=== PATIENT | male | born 1995 | race Caucasian/White ===

== ENCOUNTER 2023-11-27 20:51 | Emergency (ER) | payer SELFPAY ==
[2023-11-27 20:54] VITALS: BP 136/84
[2023-11-27 21:23] VITALS: BMI 25.5
--- NOTE | 2023-11-27 23:05 | ED.GENMED ---
History of Present Illness
General
Chief Complaint: Throat Problem
Time Seen by Provider: 11/27/23 22:15
History of Present Illness
History of Present Illness:
28-year-old male presents the emergency department for evaluation of intractable sore throat for the past 2 weeks. He was diagnosed with strep throat last week and started on azithromycin, return to the urgent care several days after with worsening
symptoms and was prescribed cefdinir and prednisone. Continues to take these medications without improvement. Denies any fevers but is having significant difficulty opening the jaw.
Review of Systems
Review of Systems
Allergies reviewed?: Yes
All Other Systems: ROS reviewed and negative except as documented in HPI and ROS
Phy Exam
Physical Exam
Physical Exam:
GEN: Well appearing, NAD, WDWN
HEENT: Oral mucosa moist, no scleral icterus. Large right peritonsillar abscess with severe uvular deviation and mild trismus. Palpable anterior cervical chain adenopathy
Cardiac: Regular rate
Lung: No respiratory distress, no tachypnea
MSK: No gross deformity or injuries
Skin: Good color, no pallor or jaundice, no rashes
Neuro: AO x3, moves all extremities freely
Psych: Calm, cooperative
Course
Orders/Labs/Results
Orders:
Orders
11/27/23 23:05
Clindamycin HCl [Cleocin] 450 mg PO NOW STA
Dexamethasone Pf [Decadron] 10 mg PO NOW STA
Vital Signs
Initial and Last Documented VS:
Initial Vital Signs
Temp Pulse Resp BP Pulse Ox
98.5 F 78 24 136/84 98
11/27/23 20:54 11/27/23 20:54 11/27/23 20:54 11/27/23 20:54 11/27/23 20:54
Last Documented Vital Signs
Temp Pulse Resp BP Pulse Ox
98.5 F 78 24 136/84 98
11/27/23 20:54 11/27/23 20:54 11/27/23 20:54 11/27/23 20:54 11/27/23 20:54
Procedures
Incision/Drainage/Joint Aspiration
Right peritonsillar:
Anethesia: 1% Lidocaine with Epi and other (Topical benzocaine)
Type of procedure: incise
Nature of site: abscess
Description of abscess: greater than 3cm
How much fluid was obtained?: large amount
Fluid description: purulent
Treatment: left open for drainage
MDM/Problems Addressed
MDM/Problems Addressed:
Copious purulent drainage was noted after puncturing the abscess, the patient was observed for approximately 45 minutes in the emergency department with significant symptomatic improvement and no further purulent discharge or bleeding was noted
postprocedure. Will switch his antibiotic therapy to clindamycin. I discussed the case with ENT on-call who will help arrange for outpatient follow-up
*Critical Care Note
Total Time (30-74mins, 75-104mins- exclusive of procedures): Not Applicable
ED Attending Note
-
Portions of this chart may have been created with voice recognition software.� Occasional wrong word or��sound alike� substitutions may have occurred due to the inherent limitations of voice recognition software.
Discharge Plan
Departure
Patient Disposition: Home (Routine Discharge)
Date of Disposition: 11/27/23
Time of Disposition: 23:05
Patient with high blood pressure during this ER visit?: No
Discharge Problem:
Peritonsillar abscess
Instructions: Peritonsillar Abscess, Adult (DC)
Prescriptions:
New
clindamycin HCl 300 mg capsule
300 mg PO Q6H 7 Days Qty: 28 0RF
No Action
No Current Medications
Referrals:
Rodolfo Motley MD [Active] - Call in 1-3 days for appt
Activity Restrictions/Additional Instructions:
Do not take the prednisone again until Monday
Follow-up with ENT as soon as possible
Stop the antibiotics you are currently taking and switch to clindamycin
Interventions
Interventions:
*Risk Screen - Suicide Last Done: 11/27/23 20:54
*Neglect/Abuse Screening Last Done: 11/27/23 20:54
ED-EENT Assessment Last Done: 11/27/23 21:20
ED- Pulmonary Assessment Last Done: 11/27/23 21:20
Discharge Date and Time
Print Language: MONGOLIAN
[2023-11-27] MEDS: DECADRON 10 MG PO (23:21)
[2023-11-27] MEDS: CLEOCIN 450 MG PO (23:23)
[2023-11-27 23:30] VITALS: BP 136/86
== END 2023-11-27 23:30 | disposition home or self-care (01) ==
LOC: EMR 20:51
PROVIDERS: EMERGENCY PHYSICIAN Emergency Medicine
DX: J36 Peritonsillar abscess (principal)
CPT/HCPCS: 99283; 42700

== ENCOUNTER 2023-12-03 10:36 | Emergency (ER) | payer OTHER, SELFPAY ==
[2023-12-03 10:37] VITALS: BP 126/83
--- NOTE | 2023-12-03 12:25 | ED.GENMED ---
History of Present Illness
General
Chief Complaint: Throat Problem
Source: patient
Time Seen by Provider: 12/03/23 12:19
History of Present Illness
History of Present Illness:
28-year-old male presents to the emergency room complaints of pain in the right side of his throat. Patient was here in the emergency room on November 26 and diagnosed with a peritonsillar abscess on the right. He had an I&D performed which resulted
in the drainage of a large amount of pus. Patient felt much better after the procedure. He was discharged on clindamycin. Patient continues to take clindamycin. However he is beginning to feel increased pain in the right throat and jaw. He
feels some limitation to his ability to open his mouth fully. No fever or chills. Patient is tolerating his own secretions and is able to swallow liquids.
Phy Exam
Physical Exam
Physical Exam:
General: Awake, Alert, Oriented X3. No acute distress.
Vitals: unremarkable
Head: Atraumatic
Eyes: Pupils equal, EOMI
Throat: Airway intact, no exudates, there is perhaps mild asymmetry of the right peritonsillar region but no large abscess. To palpation the area is mildly tender.
Neck: Trachea midline
Lungs: Clear and equal b/l
Heart: Regular rate, no murmurs
Neuro: Nonfocal
Skin: Warm, dry, no rash
Extremities: pulses equal b/l, no edema
Course
Orders/Labs/Results
Orders:
Orders
12/03/23 12:38
CT Neck With Iv Contrast Urgent
Comment: healthy, no need to wait for labs
Reason For Exam: r nck pain, recent absI+D, ? return/deep space inf
12/03/23 13:07
Basic Metabolic Panel Urgent
Complete Blood Count/With Diff Urgent
12/03/23 15:48
Dexamethasone Sod Phosphate [Decadron] 8 mg IV NOW STA
12/03/23 16:09
Clindamycin 600 mg/50 ml [Cleocin] 600 mg in 50 ml IV NOW
Abnormal Lab Results
12/03/23
13:07
WBC 12.7 H 10^3/uL
(4.8-10.8)
RBC 4.68 L 10^6/uL
(4.70-6.10)
Hct 38.2 L %
(39.0-52.0)
Abs Immat Gran (auto) 0.1 H 10^3/uL
(0-0.05)
Absolute Neuts (auto) 10.5 H 10^3/uL
(1.4-6.5)
Neutrophils % 83.0 H %
(42.2-75.2)
Lymphocytes % 11.5 L %
(20.5-51.1)
12/03/23 13:07
12/03/23 13:07
Vital Signs
Initial and Last Documented VS:
Initial Vital Signs
Temp Pulse Resp BP Pulse Ox
98.2 F 76 16 126/83 98
12/03/23 10:37 12/03/23 10:37 12/03/23 10:37 12/03/23 10:37 12/03/23 10:37
Last Documented Vital Signs
Temp Pulse Resp BP Pulse Ox
98.2 F 85 16 125/75 98
12/03/23 10:37 12/03/23 16:00 12/03/23 16:00 12/03/23 16:00 12/03/23 16:00
MDM/Problems Addressed
Differential Diagnosis Includes:
Recurrent peritonsillar abscess, tonsillitis, deep space infection
MDM/Problems Addressed:
CT shows persistent/recurrent peritonsillar abscess. Given that it is not large and is recurrent I have asked ENT to evaluate the patient. Dr. Polo was kind enough to come in and see the patient. He aspirated a small amount of material. We
will provide a dose of IV clinda and IV Decadron. Dr. Meredith recommends changing antibiotics to Bactrim. ENT follow-up as an outpatient.
*Radiology
Radiology exam reviewed: radiology read reviewed
*Pulse Oximetry
Patient hypoxic: no
*Critical Care Note
Total Time (30-74mins, 75-104mins- exclusive of procedures): Not Applicable
ED Attending Note
-
Portions of this chart may have been created with voice recognition software.� Occasional wrong word or��sound alike� substitutions may have occurred due to the inherent limitations of voice recognition software.
Discharge Plan
Departure
Patient Disposition: Home (Routine Discharge)
Date of Disposition: 12/03/23
Time of Disposition: 15:47
Patient with high blood pressure during this ER visit?: No
Condition: Good
Discharge Problem:
Peritonsillar abscess
Prescriptions:
New
sulfamethoxazole-trimethoprim [Bactrim DS] 800-160 mg tablet
1 tab PO BID Qty: 14 0RF
prednisone 20 mg tablet
40 mg PO DAILY Qty: 6 0RF
No Action
No Current Medications
clindamycin HCl 300 mg capsule
300 mg PO Q6H 7 Days Qty: 28 0RF
Referrals:
NONE,* [Family Provider] -
Lalo Polo MD [Active] -
Interventions
Interventions:
*Risk Screen - Suicide Last Done: 12/03/23 16:00
*General Assessment Last Done: 12/03/23 16:00
*Neglect/Abuse Screening Last Done: 12/03/23 16:00
ED- Fall Risk Assessment Last Done: 12/03/23 16:00
*ED COVID-19 Vaccine History Last Done: 12/03/23 16:00
*Nursing Disposition Last Done: 12/03/23 17:26
ED-EENT Assessment Last Done: 12/03/23 13:25
ED- Pulmonary Assessment Last Done: 12/03/23 13:25
Discharge Date and Time
Discharge Date/Time: 12/03/23 17:26
Print Language: SERBIAN
[2023-12-03 13:22] LABS: % Basophils 0.4 % (0-2); % Eosinophils 0.6 % (0-6); % Immature Granulocytes 0.4 % (0-0.5); % Lymphocytes 11.5 % (20.5-51.1); % Monocytes 4.1 % (1.7-9.3); Absolute Basophils 0.1 10^3/uL (0-0.2); Absolute Eosinophils 0.1 10^3/uL (0-0.7); Absolute Immature Granulocytes 0.1 10^3/uL (0-0.05); Absolute Lymphocytes 1.5 10^3/uL (1.2-3.4); Absolute Monocytes 0.5 10^3/uL (0.1-0.6); Absolute Neutrophils 10.5 10^3/uL (1.4-6.5); Hematocrit 38.2 % (39.0-52.0); Hemoglobin 13.6 g/dL (13.0-18.0); Mean Corp Hgb Conc. 35.6 g/dL (33.0-37.0); Mean Corpuscular Hgb 29.1 pg (27.0-31.0); Mean Corpuscular Volume 81.6 fL (80.0-94.0); Mean Platelet Volume 9.4 fL (7.4-10.4); Nucleated Red Blood Cells % 0 % (-); Platelet Count 361 10^3/uL (130-400); Red Blood Cell Count 4.68 10^6/uL (4.70-6.10); Red Cell Dist. Width 12.6 % (11.5-14.5); White Blood Cell Count 12.7 10^3/uL (4.8-10.8)
[2023-12-03 13:27] LABS: Blood Urea Nitrogen 15 mg/dl (9-20); Calcium 9.7 mg/dl (8.4-10.2); Carbon Dioxide 26 mmol/L (22-30); Chloride 104 mmol/L (98-107); Glucose 96 mg/dl (70-99); Potassium 4.2 mmol/L (3.5-5.1); Sodium 138 mmol/L (135-145); eGFR > 60.00
[2023-12-03 16:00] VITALS: BP 125/75
[2023-12-03] MEDS: DECADRON 8 MG IV (16:27)
[2023-12-03] MEDS: CLEOCIN 50 IV (16:28)
== END 2023-12-03 17:26 | disposition home or self-care (01) ==
LOC: EMR 10:36
PROVIDERS: EMERGENCY PHYSICIAN Emergency Medicine; OTHER PHYSICIAN Otolaryngology
DX: J36 Peritonsillar abscess (principal)
CPT/HCPCS: 99284; 96365; 96375; 41800; 70491; 80048; 85025; Q9967